=== PATIENT | male | born 1980 | race Caucasian/White ===

== ENCOUNTER 2016-09-19 23:24 | Emergency (ER) | payer SELFPAY | END 2016-09-19 23:36 | disposition home or self-care (01) | LOC: ER 23:25 | DX: Z53.21 Procedure and treatment not carried out due to patient leaving prior to being seen by health care provider (principal) ==

== ENCOUNTER 2018-05-27 06:09 | Emergency (ER) | payer SELFPAY ==
[~2018-05-27] VITALS: Ht 182.9 cm; Wt 89.4 kg
--- NOTE | 2018-05-27 06:22 | NUR ---
PT BIBSELF COMPLAINING OF CHEST TIGHTNESS X1HOUR TECHNOLOGY EDUCATION INSTRUCTOR. PT STATES HE TOOK TRAZADONE AND TYLENOL WITH CODIENE BEFORE HE FELT SYMPTOMS. PT DENIES SOB, N/V/D, HEADACHE, DIZZINESS. NOTED FACIAL REDNESS. PT IS AAOX4. RESPIRATIONS EVEN AND UNLABORED. SKIN WARM AND INTACT. NO ACUTE DISTRESS NOTED AT THIS TIME. PT PLACED IN GOWN AND ON CONTINUOUS GRINDER SET UP OPERATOR UNIVERSAL, WILL CONTINUE TO MONITOR
--- NOTE | 2018-05-27 06:24 | NUR ---
MD AT BEDSIDE FOR EVALUATION
--- NOTE | 2018-05-27 06:30 | NUR ---
IV INITIATED RIGHT AC 18G. LABS DRAWN FROM SITE. 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 IV INTACT AND PATENT, PLACED ON SALINE LOCK
[2018-05-27 06:40] LABS: BASOPHILS % (AUTO) 0.7 % (0.0-2.0); EOSINOPHILS % (AUTO) 3.1 % (0.0-6.0); HEMATOCRIT 44 % (39-51); HEMOGLOBIN 15.4 g/dL (13.5-17.5); LYMPHOCYTES # (AUTO) 2.2 /CMM (0.8-4.8); MEAN CORPUSCULAR HGB CONC 35 g/dl (31.0-36.0); MEAN CORPUSCULAR VOLUME 82 fL (80-96); MONOCYTES # (AUTO) 0.5 /CMM (0.1-1.30); MONOCYTES % (AUTO) 7.8 % (2.0-12.0); NEUTROPHILS # (AUTO) 3.7 /CMM (1.8-8.9); NEUTROPHILS % (AUTO) 55.4 % (43.0-81.0); PLATELET COUNT (AUTO) 272 /CMM (150-450); WHITE BLOOD COUNT (AUTO) 6.8 K/uL (4.3-11.0)
[2018-05-27 06:47] LABS: CARBON DIOXIDE 28 mmol/L (21-32); CHLORIDE 103 mmol/L (98-107); GLUCOSE 97 mg/dL (74-106); POTASSIUM 4.3 mmol/L (3.5-5.1); SODIUM SERUM 139 mmol/L (136-145); UREA NITROGEN, BLOOD 17 mg/dL (7-18)
--- NOTE | 2018-05-27 07:34 | NUR ---
Note yeny in EDM - 05/27/18 at 0735 by HIMANSHU Patient discharged to home in stable condition. Written and verbal after care instructions given. Patient verbalizes understanding of instruction. IV removed. Catheter intact and site benign. Pressure and 4x4 applied to site. No bleeding noted. Pt ambulatory with a steady gait
--- NOTE | 2018-05-27 07:35 | NUR ---
Patient discharged to home in stable condition. Written and verbal after care instructions given. Patient verbalizes understanding of instruction. IV removed. Catheter intact and site benign. Pressure and 4x4 applied to site. No bleeding noted.Pt ambulatory with a steady gait
[2018-05-27 07:36] VITALS: BP 127/77
== END 2018-05-27 07:36 | disposition home or self-care (01) ==
LOC: ER 06:12
DX: R00.2 Palpitations (principal); R07.89 Other chest pain; T43.215A Adverse effect of selective serotonin and norepinephrine reuptake inhibitors, initial encounter; T39.1X5A Adverse effect of 4-Aminophenol derivatives, initial encounter; T40.2X5A Adverse effect of other opioids, initial encounter; K11.7 Disturbances of salivary secretion; F17.200 Nicotine dependence, unspecified, uncomplicated; Z98.890 Other specified postprocedural states; Y92.89 Other specified places as the place of occurrence of the external cause
CPT/HCPCS: 36415; 71045-TC; 80048-TC; 84484-TC; 85025-TC; A4606; Z7610